=== PATIENT | male | born 1975 | race Caucasian/White ===

== ENCOUNTER 2017-02-02 22:43 | Emergency (ER) | payer OTHER ==
[~2017-02-02] VITALS: Wt 120.5 kg
[~2017-02-02 22:43] MED LIST: AZIT500T5 PO; CIPR7.5D4 LEFT EAR; FLUT16SP17 NASAL; HYDR-762 PO; HYDR-906 PO; IBUP-1542 PO; IBUP800T25 PO; NAPR-688 PO; OFLO5DRO7 LEFT EAR; ONDA4TAB35 PO; PRED20TA PO
[2017-02-03] MEDS ORDERED: NPH10OT LEFT EAR (00:40)
--- NOTE | 2017-02-03 00:49 | ERD ---
ER Documentation Chief Complaint Date/Time DATE: 02/03/17 TIME: 00:48 Chief Complaint Left ear pain since10 am HPI This is a 41-year-old male who presents with left ear pain that he has had for 4 days. The pain began after he picked at his ears and then he believes he got infection from that. He has noticed some purulent drainage from his ear. He has 8 out of 10 pain in the ear that feels like a fullness. Denies any cough or sore throat but does state he had a fever yesterday. He has not taken any medications for this. ROS All systems reviewed and are negative except as per history of present illness. Medications Home Meds Active Scripts Neomycin/Polymyxin/Hydrocort* (Cortisporin* Otic) 10 Ml Susp, 4 DROP LEFT EAR QID for 7 Days, EA Prov:YANIQUE TEMPLE PA-C 02/03/17 Hydrocodone/Acetaminophen ([place] 5-325 Tablet) 1 Each Tablet, 1 EACH PO QID, # 15 TAB Prov:MARCE HOPPER MD 07/08/16 Ibuprofen* (Ibuprofen*) 600 Mg Tablet, 600 MG PO Q6, #30 TAB Prov:MARCE HOPPER MD 07/08/16 Prednisone* (Prednisone*) 20 Mg Tab, 60 MG PO DAILY for 5 Days, TAB Prov:PRESLEY RILEY PA-C 07/07/16 Fluticasone Propionate* (Fluticasone Propionate* Nasal) 50 Mcg/[place] - 16 Gm [place].susp, 1 SPRAY NASAL BID, #1 BOTTLE TO EACH NOSTRIL Prov:PRESLEY RILEY PA-C 07/07/16 Ofloxacin Otic (Ofloxacin Otic) 5 Ml Drops, 5 DROP LEFT EAR BID for 10 Days, #1 BOTTLE Prov:PRESLEY RILEY PA-C 07/07/16 Ibuprofen* (Motrin*) 800 Mg Tab, 800 MG PO Q6, #30 TAB Prov:PRESLEY RILEY PA-C 07/07/16 Hydrocodone/Acetaminophen ([place] 5-325 Tablet) 1 Each Tablet, 1 EACH PO Q6, #20 TAB Prov:MARY CORRALES DO 05/15/16 Azithromycin* (Azithromycin*) 500 Mg Tablet, 500 MG PO DAILY, #3 TAB Prov:MARY CORRALES DO 05/15/16 Naproxen* (Naproxen*) 500 Mg Tablet, 500 MG PO BID, #20 TAB Prov:MARY CORRALES DO 05/15/16 Ciprofloxacin Hcl/Dexameth (Ciprodex Otic Suspension) 7.5 Ml Drops.susp, 4 DROP LEFT EAR BID, #1 BOTTLE Prov:MARY CORRALES DO 05/15/16 Ibuprofen* (Motrin*) 800 Mg Tab, 800 MG PO Q6, #30 TAB Prov:WILLIE MUNOZ PA-C 01/30/16 Ondansetron Hcl* (Zofran* ODT) 4 mg -ODT Tab.disper, 4 MG PO Q6 Y for NAUSEA AND /OR VOMITING, #10 TAB Prov:DENA PERRIN MD 08/13/15 Prednisone* (Prednisone*) 20 Mg Tab, 40 MG PO DAILY for 5 Days, TAB Prov:DENA PERRIN MD 08/13/15 Ibuprofen* (Motrin*) 800 Mg Tab, 800 MG PO Q6H Y for PAIN AND OR ELEVATED TEMP, #30 TAB Prov:DENA PERRIN MD 08/13/15 Hydrocodone Bit-Acetaminophen* ([place]*) 10-325 Mg Tablet, 1 TAB PO Q6 Y for PAIN , #20 TAB Prov:DENA PERRIN MD 08/13/15 Allergies Allergies: Coded Allergies: Penicillins (Verified Allergy, Unknown, 07/08/16) PMhx/Soc History of Surgery: Yes (Right lower extremity surgery) Anesthesia Reaction: No Hx Neurological Disorder: No Hx Respiratory Disorders: No Hx Cardiac Disorders: No Hx Psychiatric Problems: No Hx Miscellaneous Medical Probl: No Hx Alcohol Use: No Hx Substance Use: No Hx Tobacco Use: No FmHx Family History: No diabetes Physical Exam Vitals Vital Signs Date Time Temp Pulse Resp B/P Pulse Ox O2 Delivery O2 Flow Rate FiO2 02/02/17 22:59 97.7 93 20 129/80 96 Physical Exam General: well developed, well nourished, alert, nontoxic, no distress Head: normocephalic, atraumatic Eyes: PERRL, normal conjunctiva Neck: Supple, nontender, no lymphadenopathy, no midline tenderness Ears: no tenderness over mastoids bilaterally, TMs nonerythematous, exudates in left canal Oropharynx: no tonsilar erythema or edema, uvula midline, no exudates, no kissing tonsils, no drooling Respiratory: Clear to auscaultation bilaterally, speaks in full sentences, no use of accesory muscles or labored breathing, no rales, ronchi, or wheezing Cardiovascular: RRR, No murmurs GI: soft, non tender, non distended, negative murphys sign, negative mcburneys point tenderness, no cva tenderness bilaterally, no rebound or guarding Procedures/MDM 5-year-old male presents with normal vitals and ear pain. He has otitis externa and was discharged with Cortisporin eardrops. Recommended this patient follow up with her primary care doctor within 48 hours or return to the emergency room for any worsening of symptoms. However this time I do believe there is suitable for outpatient management. I answered all their questions and they agreed with the plan and were discharged home. Departure Diagnosis: Primary Impression: Otitis externa Condition: Stable Patient Instructions: External Ear Infection (Adult) Additional Instructions: Call your primary care doctor TOMORROW for an appointment during the next 1-2 days.See the doctor sooner or return here if your condition worsens before your appointment time. YANIQUE TEMPLE PA-C February 03, 2017 00:49
== END 2017-02-03 01:51 | disposition home or self-care (01) ==
LOC: FTE 22:43
DX: H60.92 Unspecified otitis externa, left ear (principal)
CPT/HCPCS: 99283

== ENCOUNTER 2018-06-19 09:44 | Emergency (ER) | END 2018-06-19 15:10 | disposition home or self-care (01) ==

== ENCOUNTER 2018-12-24 05:22 | Emergency (ER) | payer OTHER ==
[~2018-12-24] VITALS: Ht 182.9 cm; Wt 115.8 kg
[~2018-12-24 05:22] MED LIST changes: +CIPR500T4 PO; +CIPR7.5D LEFT EAR; -CIPR7.5D4 LEFT EAR; +HYDR-4011 PO; -HYDR-906 PO; -IBUP800T25 PO; +IBUP800T48 PO; +METR500T PO; +NPH10OT LEFT EAR
[2018-12-24 05:24] VITALS: Ht 182.9 cm; Wt 115.8 kg
[2018-12-24] MEDS ORDERED: SOD CHLORIDE 0.9% 1,000 ML IV ONE (06:00)
[2018-12-24] MEDS ORDERED: morphine 4 MG/ML VIAL IV STA (06:10)
[2018-12-24] MEDS ORDERED: METR500T PO (06:50)
[2018-12-24] MEDS ORDERED: CIPR500T4 PO (06:50)
--- NOTE | 2018-12-24 06:53 | ERD ---
ER Documentation Chief Complaint Chief Complaint LLQ PAIN X'S 4 DAYS; DIARRHEA LAST SATURDAY HPI 43-year-old male presents the emergency department complaining of left lower quadrant abdominal pain. Patient states over the last 4 days he has had a specific left lower quadrant abdominal pain that has gotten worse over the last 4 days. He has had diarrhea, but no blood in his stool. He reports nausea but no significant vomiting. He reports a questionable low-grade fever. He reports no urinary symptoms. Pain is currently described as mild to moderate and localized in that area. ROS All systems reviewed and are negative except as per history of present illness. Medications Home Meds Active Scripts Metronidazole* (Flagyl*) 500 Mg Tablet, 500 MG PO TID for 7 Days, TAB Prov:RAFIQ MENESES 12/24/18 Ciprofloxacin Hcl* (Ciprofloxacin Hcl*) 500 Mg Tablet, 500 MG PO BID for 7 Days, TAB Prov:RAFIQ MENESES 12/24/18 Hydrocodone/Acetaminophen ([place] 5-325 Tablet) 1 Each Tablet, 1 TAB PO Q8 PRN for PAIN, #12 TAB Prov:ADA GARCIA MD 06/19/18 Metronidazole* (Flagyl*) 500 Mg Tablet, 500 MG PO TID for 7 Days, TAB Prov:ADA GARCIA MD 06/19/18 Ciprofloxacin Hcl* (Ciprofloxacin Hcl*) 500 Mg Tablet, 500 MG PO BID for 7 Days, TAB Prov:ADA GARCIA MD 06/19/18 Neomycin/Polymyxin/Hydrocort* (Cortisporin* Otic) 10 Ml Susp, 4 DROP LEFT EAR QID for 7 Days, EA Prov:YANIQUE TEMPLE PA-C 02/03/17 Hydrocodone/Acetaminophen ([place] 5-325 Tablet) 1 Each Tablet, 1 EACH PO QID, #15 TAB Prov:MARCE HOPPER MD 07/08/16 Ibuprofen* (Ibuprofen*) 600 Mg Tablet, 600 MG PO Q6, #30 TAB Prov:MARCE HOPPER MD 07/08/16 Prednisone* (Prednisone*) 20 Mg Tab, 60 MG PO DAILY for 5 Days, TAB Prov:PRESLEY RILEY PA-C 07/07/16 Fluticasone Propionate* (Fluticasone Propionate* Nasal) 50 Mcg/[employer] - 16 Gm [employer].susp, 1 SPRAY NASAL BID, #1 BOTTLE TO EACH NOSTRIL Prov:PRESLEY RILEY PA-C 07/07/16 Ofloxacin Otic (Ofloxacin Otic) 5 Ml Drops, 5 DROP LEFT EAR BID for 10 Days, #1 BOTTLE Prov:PRESLEY RILEY PA-C 07/07/16 Ibuprofen* (Motrin*) 800 Mg Tab, 800 MG PO Q6, #30 TAB Prov:PRESLEY RILEY PA-C 07/07/16 Hydrocodone/Acetaminophen ([place] 5-325 Tablet) 1 Each Tablet, 1 EACH PO Q6, #20 TAB Prov:MARY CORRALES DO 05/15/16 Azithromycin* (Azithromycin*) 500 Mg Tablet, 500 MG PO DAILY, #3 TAB Prov:MARY CORRALES DO 05/15/16 Naproxen* (Naproxen*) 500 Mg Tablet, 500 MG PO BID, #20 TAB Prov:MARY CORRALES DO 05/15/16 Ciprofloxacin Hcl/Dexameth (Ciprodex Otic Suspension) 7.5 Ml Drops.susp, 4 DROP LEFT EAR BID, #1 BOTTLE Prov:MARY CORRALES DO 05/15/16 Ibuprofen* (Motrin*) 800 Mg Tab, 800 MG PO Q6, #30 TAB Prov:WILLIE MUNOZ PA-C 01/30/16 Ondansetron Hcl* (Zofran* ODT) 4 mg -ODT Tab.disper, 4 MG PO Q6 PRN for NAUSEA AND/OR VOMITING, #10 TAB Prov:DENA PERRIN MD 08/13/15 Prednisone* (Prednisone*) 20 Mg Tab, 40 MG PO DAILY for 5 Days, TAB Prov:DENA PERRIN MD 08/13/15 Ibuprofen* (Motrin*) 800 Mg Tab, 800 MG PO Q6H PRN for PAIN AND OR ELEVATED TEMP, #30 TAB Prov:DENA PERRIN MD 08/13/15 Hydrocodone Bit-Acetaminophen* ([place]*) 10-325 Mg Tablet, 1 TAB PO Q6 PRN for PAIN, #20 TAB Prov:DENA PERRIN MD 08/13/15 Allergies Allergies: Coded Allergies: Penicillins (Verified Allergy, Unknown, 07/08/16) clindamycin (Verified Allergy, Unknown, swelling,rashes, 06/19/18) PMhx/Soc History of Surgery: Yes (Right lower extremity surgery) Anesthesia Reaction: No Hx Neurological Disorder: No Hx Respiratory Disorders: No Hx Cardiac Disorders: No Hx Psychiatric Problems: No Hx Miscellaneous Medical Probl: Yes (Sleep Apnea) Hx Alcohol Use: No Hx Substance Use: No Hx Tobacco Use: No Smoking Status: Never smoker FmHx Noncontributory for chief complaint Physical Exam Vitals Vital Signs Date Temp Pulse Resp B/P (MAP) Pulse Ox O2 O2 Flow FiO2 Time Delivery Rate 12/24/18 98.2 81 17 126/71 99 Room Air 06:30 (89) 12/24/18 97.8 88 16 138/86 99 Room Air 05:51 (103) 12/24/18 97.8 89 18 128/82 98 05:24 (97) Physical Exam GENERAL: The patient is well developed and appropriate for usual state of health in no apparent distress HEENT: Pupils equal, round, and reactive to light. EOMI. There is no scleral icterus. NECK: C-spine is soft and supple, there is no meningismus. There is no cervical lymphadenopathy. LUNGS: Clear to auscultation bilaterally. There are no rales, wheezes or rhonc hi. HEART: Regular rate and rhythm, no murmurs, clicks, rubs or gallops. ABDOMEN: Soft, nondistended. Patient has left lower quadrant tenderness with no rebound or guarding. No peritoneal signs. EXTREMITIES: There is no peripheral cyanosis or edema. No focal swelling or erythema. NEURO: The patient moves all four extremities with 5/5 strength. Cranial nerves II - XII are intact. Normal gait. Alert and oriented SKIN: There is no apparent rash or petechiae. HEME/LYMPHATIC: There is no evidence of excessive bruising or lymphedema. PSYCHIATRIC: The patient does not appear anxious or depressed. Result Diagram: 12/24/18 0553 12/24/18 0553 Results 24 hrs Laboratory Tests Test 12/24/18 05:53 White Blood Count 11.8 10^3/ul Red Blood Count 4.57 10^6/ul Hemoglobin 13.4 g/dl Hematocrit 40.9 % Mean Corpuscular Volume 89.5 fl Mean Corpuscular Hemoglobin 29.3 pg Mean Corpuscular Hemoglobin Concent 32.8 g/dl Red Cell Distribution Width 12.3 % Platelet Count 284 10^3/UL Mean Platelet Volume 10.2 fl Immature Granulocytes % 0.400 % Neutrophils % 67.2 % Lymphocytes % 21.9 % Monocytes % 9.0 % Eosinophils % 1.2 % Basophils % 0.3 % Nucleated Red Blood Cells % 0.0 /100WBC Immature Granulocytes # 0.050 10^3/ul Neutrophils # 7.9 10^3/ul Lymphocytes # 2.6 10^3/ul Monocytes # 1.1 10^3/ul Eosinophils # 0.1 10^3/ul Basophils # 0.0 10^3/ul Nucleated Red Blood Cells # 0.0 10^3/ul Prothrombin Time 12.7 Sec Prothrombin Time Ratio 1.0 INR International Normalized Ratio 0.94 Activated Partial Thromboplast Time 32.0 Sec Urine Color YELLOW Urine Clarity CLEAR Urine pH 5.0 Urine Specific [place] 1.011 Urine Ketones NEGATIVE mg/dL Urine Nitrite NEGATIVE mg/dL Urine Bilirubin NEGATIVE mg/dL Urine Urobilinogen NEGATIVE mg/dL Urine Leukocyte Esterase NEGATIVE Daina/ul Urine Microscopic RBC 0 /HPF Urine Microscopic WBC 0 /HPF Urine Hemoglobin 1+ mg/dL Urine Glucose NEGATIVE mg/dL Urine Total Protein NEGATIVE mg/dl Sodium Level 140 mmol/L Potassium Level 4.0 mmol/L Chloride Level 103 mmol/L Carbon Dioxide Level 26 mmol/L Anion Gap 11 Blood Urea Nitrogen 8 mg/dl Creatinine 0.74 mg/dl Est Glomerular Filtrat Rate mL/min > 60 mL/min Glucose Level 105 mg/dl Calcium Level 9.0 mg/dl Total Bilirubin 0.5 mg/dl Direct Bilirubin 0.00 mg/dl Indirect Bilirubin 0.5 mg/dl Aspartate Amino Transf (AST/SGOT) 20 IU/L Alanine Aminotransferase (ALT/SGPT) 21 IU/L Alkaline Phosphatase 73 IU/L Total Protein 7.7 g/dl Albumin 4.2 g/dl Globulin 3.50 g/dl Albumin/Globulin Ratio 1.20 Lipase 96 U/L Current Medications Medications Dose Sig/Martín Start Time Status Last (Trade) Ordered Route PRN Stop Time Admin Dose Reason Admin Sodium 1,000 ml @ Q1H ONCE 12/24/18 12/24/18 Chloride 1,000 mls/hr IV 06:00 12/24/18 06:20 06:59 Morphine 4 mg ONCE STAT 12/24/18 DC 12/24/18 Sulfate IV 06:10 12/24/18 06:19 (morphine) 06:11 Procedures/MDM Patient was taken to a room, seen and evaluated. Comfort measures were initiated. Diagnostic tests were ordered and reviewed. RADIOLOGY: reviewed with the radiologist REEVALUATION: 0645: Diagnostic tests were appreciated and discussed with the patient. Patient was reevaluated and appeared comfortable. He was able to tolerate oral intake. MEDICAL DECISION MAKING: Patient presents with abdominal pain of uncertain etiology. Differential diagnosis considered includes appendicitis, diverticulitis, cholecystitis and other intra-abdominal medical and surgical concerns. I have reviewed the patients lab studies and imaging as well as multiple examinations of the abdomen. Diagnostic tests show evidence of diverticulitis without perforation abscess or sepsis. Patient's pain is adequately controlled and he is able to tolerate oral intake. Patient seems appropriate for outpatient care with antibiotics which have been prescribed Departure Diagnosis: Primary Impression: Diverticulitis Condition: Stable Patient Instructions: Diverticulitis Additional Instructions: Consulte a machado mdico para el seguimiento segn lo discutido. Lleve tj copia de los resultados de machado prueba, si corresponde, a esta visita de seguimiento. Consulte a machado mdico o regrese aqu si margarita sntomas no mejoran chantal se esperaba. En cualquier momento, regrese al departamento de emergencias por cualquier cambio o empeoramiento en margarita sntomas. RAFIQ MENESES Dec 24, 2018 06:53
[2018-12-24 07:27] VITALS: BP 129/77; PULSE 79; RESP 18
== END 2018-12-24 07:30 | disposition home or self-care (01) ==
LOC: E/R 05:22
DX: K57.32 Diverticulitis of large intestine without perforation or abscess without bleeding (principal)
CPT/HCPCS: 36415; 74176; 80053; 81001; 83690; 85025; 85610; 85730; 96374; J2270; J7030; Z7502